=== PATIENT | female | born 1935 | race African-American/Black ===

== ENCOUNTER 2019-10-07 16:09 | Emergency (ER) | payer OTHER ==
[~2019-10-07] VITALS: Ht 149.9 cm; Wt 99.8 kg
[2019-10-07] MEDS ORDERED: B-125000 MC1 SUBLING (16:18)
[2019-10-07] MEDS ORDERED: TYLENOL WITH CO1 TA1 PO (16:18)
[2019-10-07] MEDS ORDERED: HYDROCHLOROTH12.5 M2 PO (16:18)
[2019-10-07] MEDS ORDERED: ZESTRIL20 MG PO (16:18)
[2019-10-07] MEDS ORDERED: ATENOLOL 25 MG25 M1 PO (16:18)
[2019-10-07 17:10] LABS: ABSOLUTE NEUTROPHILS 1.7 thou/uL (1.4-8.2); BASOPHILS 1.7 % (0.0-2.0); HEMATOCRIT 35.4 % (37.0-47.0); HEMOGLOBIN 11.7 gm/dL (12.0-15.0); LYMPHOCYTES 45.8 % (24.0-44.0); MCH 28.9 pg (26.0-34.0); MCHC 33.1 g/dL (28.0-37.0); MCV 87.5 fL (80.0-100.0); MONOCYTES 11.9 % (1.0-8.0); PLATELET COUNT 215 thou/uL (150-400); POLYS 38.6 % (36.0-66.0); RBC 4.05 mil/uL (4.20-5.00); RDW 14.4 % (10.5-14.5); WBC 4.3 thou/uL (4.0-11.0)
[2019-10-07 17:14] LABS: ANION GAP 12 mmol/L (7-16); BUN 22 mg/dL (7-18); CALCIUM 9.5 mg/dL (8.5-10.1); CHLORIDE 106 mmol/L (98-107); CO2 22 mmol/L (21-32); CREATININE 1.2 mg/dL (0.6-1.0); GLUCOSE 103 mg/dL (74-106); SODIUM 140 mmol/L (136-145)
[2019-10-07 17:15] LABS: POTASSIUM 3.8 mmol/L (3.5-5.1)
[2019-10-07 17:22] LABS: TROPONIN-I <0.06 ng/mL (<0.06)
[2019-10-07 19:09] VITALS: BP 126/56
[2019-10-07] MEDS ORDERED: ATIVAN0.5 M1 PO (19:10)
--- NOTE | 2019-10-08 08:27 | EKG ---
[facility] [place] [address] ELECTROCARDIOGRAM REPORT Name: ERICA AGUILERA Room #: DEP [facility]#: [id number] Admission: 10/07/19 Attend Phys: Discharge: 10/07/19 Date of : 39 Report #: [id number] THIS REPORT FOR: cc: FAM - Family physician unknown FAM - Family physician unknown Kem Arango MD [facility] THIS REPORT FOR: //name// [facility] ED Test Date: 2019-10-07 Test Time: 18:04:10 Pat Name: ERICA AGUILERA Department: Room: Gender: F Dental Practice Manager: ESHEETS : 1935 Requested By: Karl Funez Order Number: [id number] MD: Kem Arango Measurements Intervals [place] Rate: 69 P: 43 AK: 174 QRS: -32 QRSD: 118 T: -19 QT: 413 QTc: 443 Interpretive Statements Sinus rhythm Left ventricular hypertrophy Nonspecific T wave abnormality No previous ECG available for comparison Electronically Signed On 10-08-2019 8:25:20 CDT by Kem Arango [email or web address] <ELECTRONICALLY SIGNED> By: Kem Arango MD, FAC 10/08/19 0825 1804 180 Kem Arango MD, [facility] /EPI
== END 2019-10-07 19:28 | disposition home or self-care (01) ==
LOC: ER 16:09
PROVIDERS: Emergency Medicine
DX: F41.9 Anxiety disorder, unspecified (principal); R06.00 Dyspnea, unspecified; M19.90 Unspecified osteoarthritis, unspecified site; I10 Essential (primary) hypertension; Z79.899 Other long term (current) drug therapy